=== PATIENT | male | born 1980 | race Caucasian/White ===

== ENCOUNTER 2018-07-22 03:41 | Emergency (ER) | payer BC, SELFPAY ==
[2018-07-22 03:43] VITALS: BP 140/79; PULSE 120; RESP 32; TEMP 37.7; O2SAT 95; BMI 31.2
[2018-07-22 03:45] VITALS: O2SAT 95
--- NOTE | 2018-07-22 03:57 | RAD_ITS ---
STUDY: X-RAY CHEST REASON FOR EXAM: Male, 38 years old. Chest pain. Cough TECHNIQUE: 2 views COMPARISON: None. FINDINGS: Numerous bronchi with opaque arthur are seen centrally. There is no acute pneumonia or failure. The heart is normal in size. No pleural effusions. Normal visualized thoracic spine. Normal visualized ribs, clavicles, and shoulders. There is no demonstrated abnormality of the visualized soft tissue structures of the upper abdomen. RAD/Chest PA and Lateral IMPRESSION: Chronic bronchitis. No acute findings in the lungs Electronically Signed: Jordan Sargent MD at 5:11 EST Tel , Service support ,
--- NOTE | 2018-07-22 03:59 | ED.DCSUM_ITS ---
- ER Visit Summary Date of Service: 07/22/18 Chief Complaint: [] Respiratory illness History of Present Illness: The patient is a 38 M planing of cough and weak for the last 6 days gradual onset continuous current severity is mild. Mild shortness of breath nonproductive cough weakness fatigue. No flu shot. He has myalgias. He has been using [id number]. Was not sure if he had a fever. Physical Examination: Vital signs reviewed General: Well-nourished well-developed Head: Normocephalic atraumatic Eyes: Pupils equal round and reactive to light extraocular movements intact ENT: TMs clear no hemotympanum no trauma Neck: Nontender full range of motion Cardiovascular: Regular cardia with normal rhythm no murmurs normal S1-S2 Respiratory: No distress clear to auscultation bilaterally chest nontender Abdomen: Soft nontender nondistended normal bowel sounds no masses Back: Nontender no CVA tenderness Extremities: Nontender active range of motion ?4 extremities no trauma Skin: Normal color no trauma Neuro alert oriented cranial nerves II through XII intact normal strength sensation reflexes Test Results: [] Emergency Department Course and Treatment: [] Patient given IV fluids, Zofran Toradol and oral Tylenol. Chest x-ray obtained. X-ray shows increased markings right lower lobe consistent with infiltrate. Given levofloxacin. I feel the patient can be discharged will continue symptomatic management for pneumonia. Treatment Plan: [] Disposition: [] Impression: [] Pneumonia?community-acquired This note was generated with [employer] dictation software. It may contain incorrect words, spelling, and punctuation that were not noted in review of the chart prior to signing ED Disposition - Plan for ED Patient: Referrals: Care Physician,No Primary [Primary Care Provider] -
[2018-07-22] MEDS: Ketorolac 15 MG/ML Vial IV (04:19)
[2018-07-22] MEDS: Acetaminophen 500 MG Tablet 1000 MG PO (04:19)
[2018-07-22] MEDS: Ondansetron 4 MG/2 ML Vial IV (04:19)
[2018-07-22] MEDS: 0.9% Normal Saline 1,000 ML 1000 ML IV (04:19)
--- NOTE | 2018-07-22 04:49 | ED.DEP ---
ED Disposition - Plan for ED Patient: Disposition: Home or Assisted Living Instructions: ED Pneumonia Adult Prescriptions: Levofloxacin [Levaquin] 750 mg PO DAILY #7 tab Referrals: Care Physician,No Primary [Primary Care Provider] - Cedric Hamm DO [NON CLINICAL AFFILIATE] -
[2018-07-22] MEDS: levoFLOXacin 750 MG Tablet PO (05:15)
[2018-07-22 05:17] VITALS: BP 166/87; PULSE 104; RESP 18; TEMP 38.8; O2SAT 94
== END 2018-07-22 05:27 | disposition home or self-care (01) ==
PROVIDERS: Emergency Provider Emergency Medicine
DX: J18.9 Pneumonia, unspecified organism (principal); M54.9 Dorsalgia, unspecified
CPT/HCPCS: 71046; 96361; 96374; 96375; 99284; J7030; J2405

== ENCOUNTER 2018-07-23 23:43 | Inpatient (IN) | payer BC, SELFPAY ==
[2018-07-22 03:43] VITALS: BMI 31.2
[2018-07-23 23:43] VITALS: BP 139/78; PULSE 99; RESP 28; TEMP 36.4; O2SAT 95; BMI 30.9
--- NOTE | 2018-07-23 23:52 | EKG12_ITS ---
Test Reason : SOB Blood Pressure : / mmHG Vent. Rate : 098 BPM Atrial Rate : 098 BPM P-R Int : 130 ms QRS Dur : 076 ms QT Int : 346 ms P-R-T Axes : 043 016 027 degrees QTc Int : 441 ms Normal sinus rhythm Normal ECG Confirmed by LAUREN RICHTER, TOR ([id number]), proposal editor VANNESSA JERNIGAN ([id number]) on 07/25/2018 2:15:48 PM Referred By: Seble Anton Confirmed By:TOR AGUILAR MD
--- NOTE | 2018-07-23 23:53 | CT_ITS ---
HISTORY: sob, cough TECHNIQUE: Helically acquired images were obtained of the chest following IV contrast as per pulmonary angiogram protocol with 3D reconstructions. A radiation dose optimization technique was used for this scan. IV Contrast dosage and agent: 100 cc [id number] COMPARISON: Chest radiograph 07/22/18. FINDINGS: # of images incl. paperwork: 602 No central or lobar pulmonary embolus. The segmental and more peripheral pulmonary artery branches are not well evaluated secondary to respiratory motion artifact. No dissection or aneurysm of the thoracic aorta. Normal heart size. No pericardial effusion. No pneumothorax. Small layering simple density right pleural effusion. Interval development of opacities in the right middle lobe and medial aspect right lower lobe with air bronchograms. No acute findings left lung. Mild subcarinal lymphadenopathy. No other enlarged lymph nodes. Partially visible upper abdomen unremarkable. CT/CTA Chest W/WO Contrast IMPRESSION: No definite pulmonary embolus. The segmental and more peripheral pulmonary artery branches are not well evaluated secondary to respiratory motion artifact. Opacities in the right middle lobe and right lower lobe, more than is typically seen with atelectasis and concerning for pneumonia. Small right pleural effusion. These findings are new compared to the previous chest x-ray. Mild subcarinal adenopathy. Individualized dose optimization techniques were used for this CT. at 0134 Reported and signed by: Dragan Lal MD Electronically Signed: Dragan Lal, at 1:33 EST Tel , Service support ,
[2018-07-24] VITALS (22 sets, daily range): BP systolic 124–167; BP diastolic 66–106; PULSE 89–112; RESP 18–38; TEMP 36.6–37.7; O2SAT 93–97; BMI 31.7; BMI 31.8
--- NOTE | 2018-07-24 | ED.VISSUMM ---
- ER Visit Summary Date of Service: 07/24/18 Chief Complaint: Shortness of breath History of Present Illness: The patient is a 38 M presents to the emergency department shortness of breath. Patient was seen here 2 days ago. At that time, he was diagnosed with pneumonia and started on Levaquin. He states that despite taking the antibiotics, symptoms worsened. He had worsening dyspnea, back pain, and feels like he cannot catch his breath. He had fevers, chills, myalgias. He has taken 3 doses of his Levaquin. The patient is otherwise healthy. He has no chronic comorbidities. He denies any history of smoking. He denies any recent travel. He is on no other daily medications. He denies any history of immunosuppression. Physical Examination: Vital signs reviewed General: Well-nourished, well-developed Head: Normocephalic, atraumatic Eyes: Pupils equal and reactive, extraocular muscles intact Neck, supple, no lymphadenopathy Heart: Regular rate and rhythm Respiratory: No distress, clear bilaterally Abdomen: Soft, nontender, nondistended, no peritoneal signs Back: Nontender Extremities: Nontender, no edema, no cords Skin: Normal color no rash Neuro: Alert and oriented, no focal or lateralizing deficits Test Results: [] Emergency Department Course and Treatment: Patient presents with right-sided chest pain and dyspnea. He was tachypneic on arrival. He was splinting because of his pain. I did review his x-ray. He is been compliant with his antibiotics. IV was established. Patient was given analgesics and breathing treatments. He had very little change in his dyspnea. I did want to rule out pulmonary embolus given the patient's symptoms. Screening labs do show leukocytosis and elevated blood sugar. His lactic was also mildly elevated. Patient underwent CTA of the chest. There is no definitive pulmonary embolus. He does have multilobar pneumonia on the right. Given his pain and worsening symptoms I do feel that he is going require admission. Patient was discussed with the hospitalist. We will continue with Levaquin treatment. The patient will be admitted. Treatment Plan: [] Disposition: Admission Impression: 1. Multilobar pneumonia 2. Sepsis This note was generated with [employer] software. It may contain incorrect words, spelling, and punctuation that were not noted in review of the chart prior to signing ED Disposition - Plan for ED Patient: Referrals: Care Physician,Lidia Primary [Primary Care Provider] -
--- NOTE | 2018-07-24 00:01 | ED.RN ---
SPOKE WITH DR TRAORE ABOUT SEPSIS ALERT. PT ALREADY TAKING ANTIBIOTIC SO BLOOD CULTURES ARE NOT ORDERED
[2018-07-24] MEDS: Albuterol 2.5 MG/3 ML VIAL.NEB. INHALATION ×3 (00:10→19:20)
[2018-07-24] MEDS: Ipratropium/Albuterol Sulfate 3 ML AMPUL.NEB INHALATION (00:10)
[2018-07-24] MEDS: 0.9% Normal Saline 1,000 ML 1000 ML IV (00:38)
[2018-07-24] MEDS: Morphine 4 MG/ML Syringe IV ×4 (00:38→18:16)
[2018-07-24 00:40] LABS: Absolute Lymphocyte Count 0.75 X10^3/ul (0.83-4.51); Absolute Neutrophil Count 13.2 X10^3/uL (2.0-7.7); Basophil# 0.01 X10^3/uL; Basophil% 0.1 % (0-1); Hematocrit 39.5 % (40-54); Hemoglobin 13.2 g/dl (13.0-16.5); Lymphocyte # 0.75 X10^3/ul (4.0); Mean Corp Hgb Conc 33.4 g/gl (32-36); Mean Corpuscular Volume 86.8 fL (80-94); Mean Platelet Vol. 10.9 fl (6.2-12.0); Monocyte# 1.05 X10^3/uL; Monocyte% 6.9 % (0-10); Neutrophil # 13.24 X10^3/uL (2.7-7.7); Neutrophil % 87.6 % (47-70); Platelet Count 156 K/mm3 (150-450); RBC Distribution Width CV 12.3 % (11.6-14.6); Red Blood Count 4.55 M/mm3 (4.6-6.2); White Blood Count 15.1 K/mm3 (4.4-11.0)
[2018-07-24 00:43] LABS: POSITIVE COUNT NO; POSITIVE DIFFERENTIAL NO; POSITIVE MORPHOLOGY NO
[2018-07-24 00:51] LABS: ALB/GLOB Ratio 0.7 RATIO (0.9-2.4); AST(SGOT) 11 U/L (15-37); Alanine Aminotransfer ALT/SGPT 22 U/L (16-61); Alkaline Phosphatase 76 U/L (45-117); Anion Gap 12 (5-15); BUN 12 mg/dL (7-18); BUN/Creat Ratio 13.4 RATIO (10-20); Calcium,Total 8.2 mg/dL (8.5-10.1); Chloride 95 mmol/L (98-107); Creatinine, Serum 0.89 mg/dL (0.70-1.30); EST Glomerular Filtration Rate 101 mL/min (>60); Est Glom Filt Rate - Afr Amer 122 mL/min (>60); Globulin 4.4 g/dL (2.2-4.2); Glucose 303 mg/dL (74-106); Potassium 3.7 mmol/L (3.5-5.1); Protein, Total 7.4 g/dL (6.4-8.2); Sodium Level 133 mmol/L (136-145)
[2018-07-24] MEDS: Ketorolac 15 MG/ML Vial IV ×2 (01:23→05:12)
[2018-07-24 01:52] LABS: Lactic Acid 2.7 mmol/L (0.4-2.0)
--- NOTE | 2018-07-24 01:53 | ED.RN ---
RECEIVED CALL FROM LAB FOR CRITICAL LAB VALUE. LACTIC ACID 2.7. DR. OCAMPO NOTIFIED.
--- NOTE | 2018-07-24 02:20 | HP.PCM_ITS ---
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 The patient is a 38 year old M with no significant past medical history presented to the emergency room because of shortness of breath, cough and right mid back pain. His symptoms started around 6 days ago with shortness of breath, mainly exertional and sometimes even at rest, aggravated by any type of act ivity, not relieved with rest and associated with productive cough with small amount of light yellow sputum as well as subjective fever. Also complains of right mid back pain, sharp pain, 5-6 out of 10 severity, aggravated by taking a deep breath and no associated symptoms. He came to the emergency department on the morning of July 22, 2018, had chest x-ray that showed no acute findings and he was discharged on Levaquin. He took Levaquin for 2 days without any improvement. In the emergency department, patient was afebrile, tachycardic, blood pressure was slightly elevated, dyspneic and tachypneic, pulse ox was 94% on room air. Routine blood work was remarkable for leukocytosis, blood glucose of 303. Blood glucose of 303. Lactic acid was 2.7. EKG revealed sinus rhythm without evidence of acute ischemic changes. Troponin is negative. CTA chest revealed no PE or dissection, revealed opacities in the right middle and lower lobe as well as small right pleural effusion. He is being admitted for right lung community-acquired pneumonia with severe sepsis and hyperglycemia. Past Medical History Past Medical History (Chronic Problems): Chronic Problems Tear of medial meniscus of left knee (Chronic) Synovial plica of left knee (Chronic) Allergies No Known Allergies Allergy (Verified 07/23/18 23:46) Home Medications: Ambulatory Orders Medication Instructions Recorded Levofloxacin [Levaquin] 750 mg PO DAILY #7 tab 07/22/18 Surgical History: - - Left knee surgery for meniscal tear. Psychiatric History: No pertinent psych hx Lives: Spouse/ Significant Other Smoking Status: Former smoker Alcohol: None Drugs: None - *Family History Maternal History Items: No pertinent history Paternal History Items: No pertinent history, - - No family history of diabetes or hypertension. Review of Systems Constitutional: Reports: Anorexia, Fever. Denies: Chills, Weakness, Fatigue Eyes: Denies: Blurred vision, Double vision, Drainage, Redness HEENT: Denies: Difficulty Hearing, Ear Pain, Eye Pain, Nasal Congestion, Sore Throat Cardiovascular: Denies: Chest Pain, Chest Pressure, Chest Tightness, Light Headedness, Palpitations, Syncope Respiratory: Reports: Cough, Pleuritic Pain, Shortness of Breath, Shortness of breath upon exertion, Sputum production. Denies: Wheezing Gastrointestinal: Denies: Abdominal Pain, Constipation, Diarrhea, Nausea, Vomiting Genitourinary: Denies: Dysuria, Frequency, Hematuria Musculoskeletal: Denies: Arm Pain, Back Pain, Foot Pain Skin: Denies: Dryness, Rash Neurological: Denies: Balance problems, Double vision, Change in Speech, Slurred speech, Confusion, Incoordination, Numbness Psychiatric: Denies: Anxiety, Depression Endocrine: Denies: Change in Body Habitus, Polydipsia VTE Information - Inpt Only VTE Present on Admission: No VTE Mechan Device Prophylaxis: None VTE Pharm Prophylaxis ordered?: No Patient Problems: Active and Suspected Problems Severe sepsis (Acute) Community acquired pneumonia (Acute) - Physical Exam General: Alert, Oriented x3, Cooperative, - - Minimally short of breath. HEENT: Atraumatic, PERRLA, EOMI, Normocephalic Oral: Moist Mucosa, No Gingival or Mucosal Lesions/ Ulcerations Neck: Supple, No JVD, Negative Carotid Bruits, Trachea Midline, Thyroid Normal Size and Texture Lungs: No wheeze, Diminished, Rales, Short of Breath, - - Limited respiratory effort because of right mid back pleuritic pain. Decreased breath sounds bilaterally, more on the right side, faint crackles on the right lower zone. Cardiovascular: Regular rate, Regular Rhythm, Normal S1, Normal S2, PMI Normal, Tachycardic Abdomen: Bowel Sounds Present, Soft, Non Tender, Non-Distended, No Hepato- splenomegaly Extremities: No clubbing, No cyanosis, No edema Skin: No rashes, No breakdown Lymphatic: No Cervical, Supraclavicular, or Inguinal Adenopathy Neurological: Cranial nerves II-XII grossly intact, Motor Exam 5/5 strength throughout Psych/Mental Status: Normal Affect, Appropriate, Alert and oriented to time, place, person, mood and affect Vital Signs Temp Pulse Resp BP Pulse Ox 99.8 F H 110 H 22 H 124/86 H 93 07/24/18 02:10 07/24/18 02:10 07/24/18 02:10 07/24/18 02:10 07/24/18 02:10 Oxygen Delivery Method Room Air Weight: 248 lb Body Mass Index (BMI) 30.9 Laboratory Tests Past 24 Hrs 07/23/18 07/23/18 07/23/18 00:05 23:59 23:59 WBC 15.1 H RBC 4.55 L Hgb 13.2 Hct 39.5 L MCV 86.8 MCH 29.0 MCHC 33.4 RDW 12.3 RDW Differential 39.0 Plt Count 156 MPV 10.9 Immature Gran % (Auto) 0.400 Neut % (Auto) 87.6 H Lymph % (Auto) 5.0 L Dickey % (Auto) 6.9 Eos % (Auto) 0.0 Baso % (Auto) 0.1 Absolute Neuts (auto) 13.2 H Absolute Lymphs (auto) 0.75 L Total Counted Not Reportable Sodium 133 L Potassium 3.7 Chloride 95 L Carbon Dioxide 26.0 Anion Gap 12 BUN 12 Creatinine 0.89 Estim Creat Clear Calc 134.50 Est GFR (MDRD) Af Amer 122 Est GFR (MDRD) Non-Af 101 BUN/Creatinine Ratio 13.4 Glucose 303 H Lactic Acid Calcium 8.2 L Total Bilirubin 0.90 AST 11 L ALT 22 Alkaline Phosphatase 76 Troponin I < 0.015 Total Protein 7.4 Albumin 3.0 L Globulin 4.4 H Albumin/Globulin Ratio 0.7 L 07/24/18 00:32 WBC RBC Hgb Hct MCV MCH MCHC RDW RDW Differential Plt Count MPV Immature Gran % (Auto) Neut % (Auto) Lymph % (Auto) Dickey % (Auto) Eos % (Auto) Baso % (Auto) Absolute Neuts (auto) Absolute Lymphs (auto) Total Counted Sodium Potassium Chloride Carbon Dioxide Anion Gap BUN Creatinine Estim Creat Clear Calc Est GFR (MDRD) Af Amer Est GFR (MDRD) Non-Af BUN/Creatinine Ratio Glucose Lactic Acid 2.7 H Calcium Total Bilirubin AST ALT Alkaline Phosphatase Troponin I Total Protein Albumin Globulin Albumin/Globulin Ratio Clinical Impression(s) from Imaging Studies Chest CTA 07/23/18 23:53 IMPRESSION: No definite pulmonary embolus. The segmental and more peripheral pulmonary artery branches are not well evaluated secondary to respiratory motion artifact. Opacities in the right middle lobe and right lower lobe, more than is typically seen with atelectasis and concerning for pneumonia. Small right pleural effusion. These findings are new compared to the previous chest x-ray. Mild subcarinal adenopathy. Individualized dose optimization techniques were used for this CT. at 0134 Reported and signed by: Dragan Lal MD Electronically Signed: Dragan Lal, at 1:33 EST Tel , Service support , Assessment/Plan All Active Problems Severe sepsis (Acute) Community acquired pneumonia (Acute) This is a 58 years old male patient presented to the medicine because of 6 days history of shortness of breath, productive cough, subjective fever and right mid back pleuritic pain and he was found to have right middle and lower lobe opacities, leukocytosis, elevated lactic acid, tachycardia consistent with right lung community-acquired pneumonia with severe sepsis and also found to have hyperglycemia without history of diabetes. #1 right lung committee acquired pneumonia/severe sepsis: Patient is tachypneic, dyspneic, tachycardic, elevated lactic acid. CTA chest reviewed, no PE or dissection, revealed right middle and lower lobe opacities as well as small right pleural effusion which is probably department effusion. He is afebrile, blood pressure stable, tachycardic. Pulse ox is maintained on room air. [facility] telemetry monitoring, blood culture, sputum culture, urine analysis, IV fluids, repeat lactic acid in 3 hours, start IV Levaquin, IV morphine as needed for pain, IV Toradol, Tylenol as needed, Mucinex twice daily, pneumococcal and Legionella antigen, respiratory panel for viruses, albuterol every 6 hours, chest physiotherapy, incentive spirometer, repeat CBC and BMP tomorrow morning. #2 hyperglycemia: Without history of diabetes. Blood sugar was 303. Plan: Hemoglobin A1c, Accu-Cheks every 6 hours, insulin sliding scale. #3 DVT prophylaxis: Low-risk patient, no prophylaxis indicated. This note was generated with Dragon dictation software. It may contain incorrect words, spelling, and punctuation that were not noted in checking the note before signing. Code Visit Inpatient E&M: 72924 Init Hosp L3
[2018-07-24 04:37] LABS: Reflex Lactate? Y
[2018-07-24] MEDS: 0.9% Normal Saline 1,000 ML 100 ML IV ×2 (04:39→16:11)
[2018-07-24] MEDS: Morphine 2 MG/ML Syringe IV ×3 (05:38→22:35)
[2018-07-24] MEDS: levoFLOXacin IV 750 MG/150 ML BAG 100 MG IV (05:39)
[2018-07-24 05:53] LABS: Lactic Acid 1.5 mmol/L (0.4-2.0)
[2018-07-24 06:11] LABS: Anion Gap 9 (5-15); BUN 12 mg/dL (7-18); BUN/Creat Ratio 12.3 RATIO (10-20); Calcium,Total 8.2 mg/dL (8.5-10.1); Chloride 97 mmol/L (98-107); Creatinine, Serum 0.97 mg/dL (0.70-1.30); EST Glomerular Filtration Rate 92 mL/min (>60); Est Glom Filt Rate - Afr Amer 111 mL/min (>60); Estimated Creatinine Clearance 123.41 ml/min; Glucose 250 mg/dL (74-106); Potassium 3.9 mmol/L (3.5-5.1); Sodium Level 134 mmol/L (136-145)
[2018-07-24 06:14] LABS: Color, Urine Yellow (Yellow); Glucose, Dipstick 1000 mg/dl (Normal); Leukocyte Esterase-Dipstick 25 /ul (Negative); Nitrite-Dipstick Negative (Negative); Occult Blood-Urine 150 /ul (Negative); Protein-Dipstick 100 mg/dl (Negative); Urine Bilirubin Dipstick Negative (Negative); Urine Clarity Sl. Cloudy (Clear); Urine Urobilinogen 1 mg/dl (Normal); Urine pH 6.5 (5.0 - 8.0)
[2018-07-24 06:23] LABS: Ketone-Dipstick 150 mg/dl (Negative)
[2018-07-24 06:34] LABS: Absolute Lymphocyte Count 0.73 X10^3/ul (0.83-4.51); Absolute Neutrophil Count 11.9 X10^3/uL (2.0-7.7); Basophil# 0.01 X10^3/uL; Basophil% 0.1 % (0-1); Hematocrit 37.7 % (40-54); Hemoglobin 12.5 g/dl (13.0-16.5); Lymphocyte # 0.73 X10^3/ul (4.0); Lymphocyte % 5.4 % (19-41); Mean Corp Hgb Conc 33.2 g/gl (32-36); Mean Corpuscular Hgb 28.9 pg (27.0-32.0); Mean Corpuscular Volume 87.3 fL (80-94); Mean Platelet Vol. 11.2 fl (6.2-12.0); Monocyte# 0.81 X10^3/uL; Neutrophil # 11.91 X10^3/uL (2.7-7.7); Neutrophil % 88.2 % (47-70); Platelet Count 181 K/mm3 (150-450); RBC Distribution Width CV 12.3 % (11.6-14.6); RBC Distribution Width SD 39.5 fl (35.1-43.9); Red Blood Count 4.32 M/mm3 (4.6-6.2); White Blood Count 13.5 K/mm3 (4.4-11.0)
[2018-07-24 06:36] LABS: POSITIVE COUNT NO; POSITIVE DIFFERENTIAL NO; POSITIVE MORPHOLOGY NO
[2018-07-24] MEDS: Insulin Lispro 100 UNIT/ML INSULN.PEN SC ×3 (06:46→18:19)
[2018-07-24 06:55] LABS: Bedside Glucose 305 mg/dL (70-110)
[2018-07-24 07:00] LABS: Hemoglobin A1c 8.6 % (4.2-6.3)
[2018-07-24] MEDS: guaiFENesin 1,200 MG Tablet 1200 MG PO ×2 (09:38→22:31)
[2018-07-24] MEDS: Glucerna Shake 120 ML LIQUID PO (10:04)
[2018-07-24] MEDS: Ibuprofen 600 MG Tablet PO ×2 (10:22→16:14)
[2018-07-24 12:26] LABS: Bedside Glucose 304 mg/dL (70-110)
[2018-07-24] MEDS: Acetaminophen 325 MG Tablet 650 MG PO (12:45)
--- NOTE | 2018-07-24 15:50 | PCM.HOSP.N ---
Hospitalist Note Patient was seen and examined briefly today, he is complaining of pleuritic chest pain, I placed him on ibuprofen and increased his as needed IV morphine. Patient's white blood cell count which was drawn this morning is improved over admission labs. So far patient's respiratory panel is negative and his urine antigens have been negative. We will continue present antibiotic coverage, repeat labs and chest x-ray tomorrow
--- NOTE | 2018-07-24 16:15 | NURSING ---
Aware that resp panel came back negative and will take out of droplet prec.
[2018-07-24] MEDS: 0.9% NaCl Peripheral Flush Adult/Peds IV (18:16)
[2018-07-24 18:25] LABS: Bedside Glucose 275 mg/dL (70-110)
[2018-07-25] VITALS (16 sets, daily range): BP systolic 121–145; BP diastolic 74–87; PULSE 84–110; RESP 18–28; TEMP 36.8–37.9; O2SAT 92–98
[2018-07-25] MEDS: Insulin Lispro 100 UNIT/ML INSULN.PEN SC ×5 (00:31→23:36)
[2018-07-25] MEDS: Ibuprofen 600 MG Tablet PO ×3 (00:38→17:30)
[2018-07-25 00:46] LABS: Bedside Glucose 241 mg/dL (70-110)
[2018-07-25] MEDS: 0.9% Normal Saline 1,000 ML 100 ML IV ×3 (01:51→21:05)
[2018-07-25] MEDS: Morphine 2 MG/ML Syringe IV ×2 (02:37→06:51)
--- NOTE | 2018-07-25 05:45 | RAD_ITS ---
STUDY: X-RAY CHEST REASON FOR EXAM: Male, 38 years old. Shortness of breath TECHNIQUE: PA and lateral views of the chest. COMPARISON: July 22, 2018 FINDINGS: The lungs are mildly hypoinflated. Elevated right hemidiaphragm is noted with right lower lobe airspace disease and probable effusion. Left lower lobe airspace disease as well. There is borderline cardiomegaly. Normal mediastinum and jose. Normal visualized pulmonary arteries. There is atherosclerotic tortuosity of the aortic arch and descending thoracic aorta. There are diffuse degenerative changes of the visualized thoracic spine. Normal visualized ribs, clavicles, and shoulders. There is no demonstrated abnormality of the visualized soft tissue structures of the upper abdomen. RAD/Chest PA and Lateral IMPRESSION: Bibasilar airspace disease; right greater than left with probable effusion and consolidation. Electronically Signed: Andi Chris DO at 8:22 EST Tel , Service support ,
[2018-07-25 06:39] LABS: Absolute Lymphocyte Count 1.17 X10^3/ul (0.83-4.51); Absolute Neutrophil Count 9.4 X10^3/uL (2.0-7.7); Basophil# 0.03 X10^3/uL; Basophil% 0.3 % (0-1); Hematocrit 38.1 % (40-54); Hemoglobin 12.3 g/dl (13.0-16.5); Lymphocyte # 1.17 X10^3/ul (4.0); Lymphocyte % 10.1 % (19-41); Mean Corp Hgb Conc 32.3 g/gl (32-36); Mean Corpuscular Hgb 28.6 pg (27.0-32.0); Mean Corpuscular Volume 88.6 fL (80-94); Mean Platelet Vol. 10.8 fl (6.2-12.0); Monocyte# 0.92 X10^3/uL; Monocyte% 7.9 % (0-10); Neutrophil # 9.38 X10^3/uL (2.7-7.7); Neutrophil % 80.7 % (47-70); Platelet Count 247 K/mm3 (150-450); RBC Distribution Width CV 12.6 % (11.6-14.6); RBC Distribution Width SD 40.3 fl (35.1-43.9); White Blood Count 11.6 K/mm3 (4.4-11.0)
[2018-07-25 06:40] LABS: POSITIVE COUNT NO; POSITIVE DIFFERENTIAL NO; POSITIVE MORPHOLOGY NO
[2018-07-25 07:01] LABS: Bedside Glucose 208 mg/dL (70-110)
[2018-07-25] MEDS: Albuterol 2.5 MG/3 ML VIAL.NEB. INHALATION ×3 (07:17→18:54)
[2018-07-25] MEDS: guaiFENesin 1,200 MG Tablet 1200 MG PO ×2 (08:22→21:17)
[2018-07-25] MEDS: Morphine 4 MG/ML Syringe IV ×2 (11:34→21:04)
[2018-07-25] MEDS: levoFLOXacin 750 MG Tablet PO (11:36)
[2018-07-25] MEDS: 0.9% NaCl Peripheral Flush Adult/Peds IV ×2 (11:36→11:56)
[2018-07-25 11:50] LABS: Bedside Glucose 213 mg/dL (70-110)
[2018-07-25] MEDS: Acetaminophen 325 MG Tablet 650 MG PO ×2 (11:56→21:13)
[2018-07-25] MEDS: Ondansetron 4 MG/2 ML Vial IV (11:56)
[2018-07-25] MEDS: guaiFENesin/Codeine 5 ML UDC 10 ML PO ×2 (13:16→17:30)
--- NOTE | 2018-07-25 13:16 | CASEMGMT ---
RN JULIAN Assessment Presentation: Pneumonia, severe sepsis. Intro role of CM and purpose of RN CM assessment to patient in room. Demographics verified. PCP: none. Pt states he goes to walk in clinic @ [facility] if needed. JOSH JORDAN gave list for PCP's in [place] and explained process, benefits for establishing with a PCP. Recommended he follow up with walk in clinic where they have his file on dc to be sure his recovery is progressing. Preferred Pharmacy: [facility] Insurance:[place] Prescription Benefit: yes LNOK: Father, Farncis Tobias Living Arrangements: Lives independently in apartment. No needs identified. Transportation: drives DME: none HHC: none DC PLAN: Home on dc.
--- NOTE | 2018-07-25 15:01 | NURSING ---
spoke with ultrasound regarding new order- states she is checking with radiologist as to when procedure may be started. direct number given to floor nurse to call when plan established.
[2018-07-25 15:24] LABS: International Normalized Ratio 1.1; Prothrombin Time (Protime)PT. 13.8 SECONDS (11.7-14.9)
[2018-07-25 15:25] LABS: Partial Thromboplast Time 31.9 Seconds (24.1-36.2)
[2018-07-25 15:26] LABS: ALB/GLOB Ratio 0.5 RATIO (0.9-2.4); Globulin 4.1 g/dL (2.2-4.2); LDH 136 U/L (87-241); Protein, Total 6.3 g/dL (6.4-8.2)
--- NOTE | 2018-07-25 15:59 | PCM.PROGNOTE ---
Patient Problems: Active and Suspected Problems Severe sepsis (Acute) Community acquired pneumonia (Acute) Subjective: He was seen and examined today, he continues to have pleuritic pain, chest x-ray today shows an accumulation of fluid (? Atelectasis,? Infiltrate) over the patient's right lower lung field. Patient's white blood cell count today is improved. Briefly with pulmonary medicine today by phone, they will see the patient tomorrow, they recommended an ultrasound-guided drainage of fluid around the right lower lobe-ultrasound will be ordered and if there is enough fluid, sample will be obtained. Patient's sputum culture was positive for staph. I have elected to keep the patient on Levaquin at this time. - Physical Exam General: Alert, Oriented x3, Cooperative, No apparent distress, Well developed, Well nourished HEENT: Atraumatic, PERRLA, EOMI, Normocephalic Oral: Moist Mucosa Neck: Supple, No Nuchal Rigidity, Trachea Midline, Thyroid Normal Size and Texture Lungs: Normal air movement, No rhonchi, Diminished - Diminished breath signs over the right lower lobe, Wheezes - Scattered expiratory wheezes bilaterally Cardiovascular: Regular rate, Regular Rhythm, Normal S1, Normal S2, No murmurs, No Ectopic Activity, PMI Normal, No rub noted Abdomen: Bowel Sounds Present, Soft, Non Tender, Non-Distended Extremities: No edema, Capillary Refill Less than 3 Seconds Skin: No rashes, No breakdown Musculoskeletal: No Tenderness to Palpation of Joints or Extremities Neurological: Cranial nerves II-XII grossly intact, Neuro grossly intact, Sensory exam intact to light touch and pain, Coordination normal Psych/Mental Status: Normal Affect, Appropriate, Alert and oriented to time, place, person, mood and affect Vital Signs Temp Pulse Resp BP Pulse Ox 99.5 F H 110 H 24 H 128/80 H 94 07/25/18 14:17 07/25/18 14:17 07/25/18 14:17 07/25/18 14:17 07/25/18 14:17 Oxygen Flow Rate (L/min) 2 Oxygen Delivery Method Nasal Cannula Weight: 115.3 kg Body Mass Index (BMI) 31.7 Intake and Output for Last 24 Hours 07/23/18 07/24/18 07/25/18 23:59 23:59 23:59 Intake Total 2285 / 2285 3075 / 3075 Output Total 300 / 300 Balance 1984 3075 / 3075 Microbiology Past 72 Hours 07/24/18 03:15 Gram Stain - Final Sputum, Expectorated/Coughed Respiratory Culture - Preliminary Staphylococcus aureus 07/24/18 05:15 Respiratory Panel (PCR) - Final Mucosa - Nose 07/24/18 05:45 Legionella Antigen - Final Urine, Clean Catch 07/24/18 05:45 Streptococcus pneumoniae Antigen (M - Final Urine, Clean Catch Laboratory Tests Past 24 Hrs 07/25/18 07/25/18 07/25/18 06:10 15:00 15:00 WBC 11.6 H RBC 4.30 L Hgb 12.3 L Hct 38.1 L MCV 88.6 MCH 28.6 MCHC 32.3 RDW 12.6 RDW Differential 40.3 Plt Count 247 MPV 10.8 Immature Gran % (Auto) 1.000 H Neut % (Auto) 80.7 H Lymph % (Auto) 10.1 L Morris % (Auto) 7.9 Eos % (Auto) 0.0 Baso % (Auto) 0.3 Absolute Neuts (auto) 9.4 H Absolute Lymphs (auto) 1.17 Total Counted Not Reportable PT 13.8 INR 1.1 APTT 31.9 Lactate Dehydrogenase 136 Total Protein 6.3 L Globulin 4.1 Albumin/Globulin Ratio 0.5 L POC Glucose 07/25/18 07/25/18 07/25/18 11:39 06:50 00:29 POC Glucose 213 H 208 H 241 H 07/24/18 18:14 POC Glucose 275 H Medical Necessity - Tobacco Use Smoking Status: Former smoker Assessment/Plan All Active Problems Severe sepsis (Acute) Community acquired pneumonia (Acute) #1 severe sepsis secondary to community-acquired pneumonia right lower lobe-? Staph aureus, await final culture results #2 community-acquired right lower lobe pneumonia-Staphylococcus aureus, continue Levaquin, pulmonary consultation #3 right pleural effusion-either parapneumonic or empyema, this will be tapped under ultrasound tomorrow if radiology is able #4 pleurisy-continue IV narcotics for pain, patient is on Motrin also #5 hypoxia-secondary to #2, continue to monitor oxygen sat #6 type 2 diabetes-new diagnosis, continue to monitor blood sugars and administer sliding scale insulin, patient will need to be placed on oral medications, I will review his medications. Code Visit Inpatient E&M: 31125 Subs Hosp L2
[2018-07-25 16:55] LABS: Bedside Glucose 236 mg/dL (70-110)
--- NOTE | 2018-07-25 17:38 | NURSING ---
cps in to see pt as well. pt looks less sob, able to speak in full sentence with less coughing.
[2018-07-26] VITALS (22 sets, daily range): BP systolic 126–149; BP diastolic 68–82; PULSE 87–125; RESP 16–32; TEMP 37.1–39.3; O2SAT 87–97
--- NOTE | 2018-07-26 | FLU_PTH ---
PATIENT: ROMAN TOPETE LOC: [facility] U#:[id number] AGE/SX: 38/M ROOM: [facility] RE07/24/[address]: Dr. Jakob Plasencia DO : 1980 BED: 1 DIS: 07/26/2018 SPEC #: [id number] RECD: 07/26/18 12:51 STATUS: SIGIFREDO REChance #: [id number] [place]: 07/26/18 00:[address]: Jakob Plasencia DEPT: CYTOLOGY RECD BY: Keith Warner ENTERED: 07/26/18 12:52 SP TYPE: Fluid OTHR DR: DO Dr. Seble Gautam MD No Primary Care Phys Tissues: THORACIC FLUID Procedures: Special Stain Group II Surgery Specimen Level IV Cytospin Fluid HEADER OPERATION: Thoracentesis PRE-OP DIAGNOSIS: Right lung CAP, severe sepsis TISSUE SUBMITTED: Thoracentesis fluid for cytology DIAGNOSIS CYTOLOGY Thoracentesis fluid for cytology (cytospin and cell block): Negative for malignant cells. Acute inflammation. AM:moe 07/27/18 CYTOLOGY STUDY Slides are reviewed. CYTOLOGY GROSS Received is <1 ml of red cloudy fluid labeled with the patient's name and and designated per the requisition as thoracentesis. Submitted for cytology preparation including cell block. / 07/26/18 TC:2 CPT: 63604, 46341
[2018-07-26] MEDS: Albuterol 2.5 MG/3 ML VIAL.NEB. INHALATION ×3 (01:28→13:12)
[2018-07-26 01:36] LABS: Bedside Glucose 283 mg/dL (70-110)
[2018-07-26] MEDS: 0.9% NaCl Peripheral Flush Adult/Peds IV ×4 (01:39→17:58)
[2018-07-26] MEDS: Morphine 4 MG/ML Syringe IV (01:39)
[2018-07-26] MEDS: guaiFENesin/Codeine 5 ML UDC 10 ML PO ×3 (01:39→16:18)
--- NOTE | 2018-07-26 04:30 | NUR.TO.PHY ---
Patient's oxygen sats alarming on continuos pulse ox in 80s. Venti was changed to 6L @ 31%. I also encouraged the patient to cough and deep breath. The oxygen sats after 5 minutes had increased to 91%. I called CPS for opinion and they recommended changing the venti to 8L @ 40%. The oxygen sats increased to 95% and heart rate also decreased.
[2018-07-26] MEDS: Ibuprofen 600 MG Tablet PO ×2 (04:58→11:44)
[2018-07-26] MEDS: Acetaminophen 325 MG Tablet 650 MG PO ×3 (04:59→16:17)
[2018-07-26] MEDS: levoFLOXacin 750 MG Tablet PO (04:59)
[2018-07-26] MEDS: Insulin Lispro 100 UNIT/ML INSULN.PEN SC ×3 (05:10→18:00)
[2018-07-26 05:16] LABS: Bedside Glucose 199 mg/dL (70-110)
--- NOTE | 2018-07-26 06:35 | NURSING ---
Transferred to PCU room 106 at this time. Verbal report to primary RN.
--- NOTE | 2018-07-26 06:44 | PCM.CONS.GEN ---
Reason for Consult Date of Consultation: 07/26/18 Reason for Consultation: Acute respiratory failure History of Present Illness: The patient is a 38-year-old male, with a history as outlined below, who presented to the emergency department on July 23 with complaints of 1 week of progressive shortness of breath, generalized malaise and fatigue. The patient had been evaluated in the emergency department the day prior with similar complaints. Plain film chest x-ray obtained at that time revealed evidence of right lower lobe infiltrate, for which the patient was prescribed Levaquin. He was subsequently felt to be stable for discharge home. The patient is a lifelong non-smoker. On presentation to the emergency department, the patient was initially found to be afebrile and hemodynamically stable. Initial laboratory evaluation revealed an elevated white blood cell count to 15,000. Chemistry profile was unrevealing. Serum lactate was mildly elevated at 2.7. A CTA chest was obtained, which revealed no evidence for pulmonary embolism. There was, however, evidence of infiltrates in the right middle and right lower lobes. The patient received supplemental IV fluid hydration and was started on antibiotics. He was subsequently transferred to the medical surgical floor for ongoing management. Over the ensuing 24 hours, the patient slowly decompensated from a respiratory perspective. He went from requiring minimal supplemental oxygen by nasal cannula to needing a 40% Ventimask, as of this morning, when I was contacted by nursing staff on the medical surgical floor, requesting emergent evaluation of the patient. The patient's plain film chest x-ray from yesterday revealed significant opacification of the right lower and mid lung molina, concerning for underlying consolidation and possible associated pleural effusion. I did place an order for repeat labs. In order for an MRSA screen was also obtained. The patient's antibiotics were subsequently broadened to vancomycin and Zosyn. I did place an order for the patient to be transferred to the PCU. Past Medical History Past Medical History (Chronic Problems): Chronic Problems Tear of medial meniscus of left knee (Chronic) Synovial plica of left knee (Chronic) Allergies No Known Allergies Allergy (Verified 07/23/18 23:46) Home Medications: Ambulatory Orders Medication Instructions Recorded Levofloxacin [Levaquin] 750 mg PO DAILY #7 tab 07/22/18 Surgical History: - - Left knee surgery for meniscal tear. Psychiatric History: No pertinent psych hx Lives: Spouse/ Significant Other Smoking Status: Former smoker Alcohol: None Drugs: None - *Family History Maternal History Items: No pertinent history Paternal History Items: No pertinent history, - - No family history of diabetes or hypertension. Review of Systems Constitutional: Reports: Fever, Malaise, Weakness, Fatigue Eyes: Denies: Blurred vision, Double vision HEENT: Denies: Head Aches, Sinus Congestion, Sinus Drainage Cardiovascular: Denies: Chest Pain, Palpitations Respiratory: Reports: Cough, Shortness of Breath, Sputum production Gastrointestinal: Denies: Abdominal Pain, Nausea, Vomiting Genitourinary: Denies: Dysuria Musculoskeletal: Denies: Joint Pain, Joint Tenderness Skin: Denies: Rash, Wounds Neurological: Denies: Numbness, Tingling, Focal weakness Psychiatric: Denies: Anxiety, Depression, Homicidal Ideations, Suicidal Ideations Hematologic/ Lymphatic: Denies: Easy Bruising, Easy Bleeding Patient Problems: Active and Suspected Problems Severe sepsis (Acute) Community acquired pneumonia (Acute) Objective: The patient's most recent lab work, culture data and imaging studies have all been personally reviewed. Blood cultures have been unrevealing to date. Sputum culture was positive for staph aureus. Respiratory viral panel was negative. Strep and urine Legionella antigens were both negative. - Physical Exam General: Alert, Cooperative, - - Diaphoretic. Ventimask in place. HEENT: Atraumatic, PERRLA, Normocephalic Oral: No Gingival or Mucosal Lesions/ Ulcerations Neck: Supple, No Nodes, Trachea Midline Lungs: Diminished, Rhonchi, Short of Breath Cardiovascular: Regular rate, Regular Rhythm, Normal S1, Normal S2, No murmurs Abdomen: Bowel Sounds Present, Soft, Non Tender Extremities: No clubbing, No cyanosis, No edema Skin: No breakdown Musculoskeletal: No Tenderness to Palpation of Joints or Extremities, No Muscle Wasting Neurological: Cranial nerves II-XII grossly intact, Neuro grossly intact Psych/Mental Status: Normal Affect, Appropriate Vital Signs Temp Pulse Resp BP Pulse Ox 37.9 C H 105 H 28 H 126/77 H 94 07/26/18 06:09 07/26/18 06:09 07/26/18 06:09 07/26/18 06:09 07/26/18 06:09 Oxygen Flow Rate (L/min) 8 Oxygen Delivery Method Venturi Mask Weight: 254 lb 3.088 oz Body Mass Index (BMI) 31.7 Intake and Output for Last 24 Hours 07/24/18 07/25/18 07/26/18 23:59 23:59 23:59 Intake Total 2285 / 2285 3375 / 3375 861 / 861 Output Total 300 / 300 1325 / 1325 1125 / 1125 Balance 1984 / 1984 -264 / -264 Microbiology Past 72 Hours 07/24/18 03:15 Gram Stain - Final Sputum, Expectorated/Coughed Respiratory Culture - Preliminary Staphylococcus aureus 07/24/18 05:15 Respiratory Panel (PCR) - Final Mucosa - Nose 07/24/18 05:45 Legionella Antigen - Final Urine, Clean Catch 07/24/18 05:45 Streptococcus pneumoniae Antigen (M - Final Urine, Clean Catch Laboratory Tests Past 24 Hrs 07/25/18 07/25/18 15:00 15:00 PT 13.8 INR 1.1 APTT 31.9 Lactate Dehydrogenase 136 Total Protein 6.3 L Globulin 4.1 Albumin/Globulin Ratio 0.5 L POC Glucose 07/26/18 07/25/18 07/25/18 05:10 23:34 16:40 POC Glucose 199 H 283 H 236 H 07/25/18 07/25/18 11:39 06:50 POC Glucose 213 H 208 H Clinical Impression(s) from Imaging Studies Chest CTA 07/23/18 23:53 IMPRESSION: No definite pulmonary embolus. The segmental and more peripheral pulmonary artery branches are not well evaluated secondary to respiratory motion artifact. Opacities in the right middle lobe and right lower lobe, more than is typically seen with atelectasis and concerning for pneumonia. Small right pleural effusion. These findings are new compared to the previous chest x-ray. Mild subcarinal adenopathy. Individualized dose optimization techniques were used for this CT. at 0134 Reported and signed by: Dragan Lal MD Electronically Signed: Dragan Lal, at 1:33 EST Tel , Service support , Chest X-Ray 07/25/18 05:45 IMPRESSION: Bibasilar airspace disease; right greater than left with probable effusion and consolidation. Electronically Signed: Andi Chris DO at 8:22 EST Tel , Service support , Assessment/Plan All Active Problems Severe sepsis (Acute) Community acquired pneumonia (Acute) RECOMMENDATIONS: 1. Broaden antibiotics to vancomycin and Zosyn. 2. Check MRSA screen. 3. Wean supplemental oxygen as tolerated. 4. Given that radiology feels that the patient has a complicated right pleural space, consider transfer to a tertiary care facility. IMPRESSIONS: 1. Acute hypoxemic respiratory failure Secondary to multifocal pneumonia with possible associated pleural effusion. The patient's antibiotics will be broadened to vancomycin and Zosyn, pending finalized infectious workup. We will plan to wean supplemental oxygen to maintain saturations at or above 90%. The opacification in the patient's right hemithorax does appear to have progressed. He was taken for an ultrasound-guided thoracentesis this morning. Radiology reported that the patient's right-sided hemithorax appeared to have a complicated pleural space, which was not amenable to thoracentesis. Therefore, given the patient's tenuous respiratory status, it may be fernandez to consider transfer to a tertiary care facility that has thoracic surgery availability. 2. Severe sepsis secondary to community-acquired pneumonia The patient does appear to be growing staph aureus from his sputum culture. He is currently on broad-spectrum antibiotics, which will be continued. Recommend continuing gentle IV fluid hydration to offset insensible losses. This note was generated with [employer] dictation software. It may contain incorrect words, spelling, and punctuation that were not noted in checking the note before signing. Code Visit Inpatient E&M: 47853 Init Hosp L3
--- NOTE | 2018-07-26 06:47 | RAD_ITS ---
STUDY: X-RAY CHEST REASON FOR EXAM: Male, 38 years old. Shortness of breath TECHNIQUE: AP COMPARISON: 07/25/2018 FINDINGS: EKG leads project over the chest. Right hemidiaphragm remains elevated. Patchy parenchymal opacities of the right more than left lung similar since previous day. Similar similar right pleural effusion (better seen on lateral view of the prior study). There is borderline cardiomegaly. Normal mediastinum and jose. Normal visualized pulmonary arteries. Normal visualized aortic arch and descending thoracic aorta. No acute bony process. There is no demonstrated abnormality of the visualized soft tissue structures of the upper abdomen. RAD/Chest 1 View (Portable) IMPRESSION: 1. Stable exam. Stable right more than left airspace disease with similar right pleural effusion. Electronically Signed: Min Henry MD at 8:57 EST , Service support ,
[2018-07-26 07:12] LABS: Absolute Lymphocyte Count 1.62 X10^3/ul (0.83-4.51); Absolute Neutrophil Count 10.9 X10^3/uL (2.0-7.7); Basophil# 0.04 X10^3/uL; Basophil% 0.3 % (0-1); Hematocrit 36.2 % (40-54); Hemoglobin 11.7 g/dl (13.0-16.5); Lymphocyte # 1.62 X10^3/ul (4.0); Lymphocyte % 12.3 % (19-41); Mean Corp Hgb Conc 32.3 g/gl (32-36); Mean Corpuscular Hgb 28.5 pg (27.0-32.0); Mean Corpuscular Volume 88.1 fL (80-94); Mean Platelet Vol. 10.1 fl (6.2-12.0); Monocyte# 0.43 X10^3/uL; Monocyte% 3.3 % (0-10); Neutrophil # 10.91 X10^3/uL (2.7-7.7); Neutrophil % 82.8 % (47-70); Platelet Count 253 K/mm3 (150-450); RBC Distribution Width CV 12.5 % (11.6-14.6); RBC Distribution Width SD 40.7 fl (35.1-43.9); Red Blood Count 4.11 M/mm3 (4.6-6.2); White Blood Count 13.2 K/mm3 (4.4-11.0)
[2018-07-26 07:18] LABS: POSITIVE COUNT NO; POSITIVE DIFFERENTIAL NO; POSITIVE MORPHOLOGY NO
[2018-07-26 07:30] LABS: ALB/GLOB Ratio 0.6 RATIO (0.9-2.4); Globulin 4.3 g/dL (2.2-4.2); LDH 175 U/L (87-241); Protein, Total 6.7 g/dL (6.4-8.2)
[2018-07-26 07:39] LABS: EST Glomerular Filtration Rate 134 mL/min (>60); Est Glom Filt Rate - Afr Amer 163 mL/min (>60); Estimated Creatinine Clearance 171.01 ml/min
[2018-07-26 07:51] LABS: International Normalized Ratio 1.2; Prothrombin Time (Protime)PT. 14.6 SECONDS (11.7-14.9)
[2018-07-26] MEDS: 0.9% Normal Saline 1,000 ML 100 ML IV (08:13)
--- NOTE | 2018-07-26 08:44 | PCM.RX.CS ---
Consult Pharmacy has been consulted to manage selected antiobiotic: Vancomycin Type of Consult: New start Suspected Infection: Sepsis, Pneumonia Labs: Sodium 134 mmol/L (136-145) L 07/24/18 05:12 Potassium 3.9 mmol/L (3.5-5.1) 07/24/18 05:12 Chloride 97 mmol/L (98-107) L 07/24/18 05:12 Carbon Dioxide 28.0 mmol/L (21.0-32.0) 07/24/18 05:12 Anion Gap 9 (5-15) 07/24/18 05:12 BUN 12 mg/dL (7-18) 07/24/18 05:12 Creatinine 0.70 mg/dL (0.70-1.30) 07/26/18 07:04 Est GFR (MDRD) Af Amer 163 mL/min (>60) 07/26/18 07:04 Est GFR (MDRD) Non-Af 134 mL/min (>60) 07/26/18 07:04 BUN/Creatinine Ratio 12.3 RATIO (10-20) 07/24/18 05:12 Glucose 250 mg/dL (74-106) H 07/24/18 05:12 Microbiology: Microbiology 07/24/18 03:15 Sputum, Expectorated/Coughed Gram Stain - Final 07/24/18 03:15 Sputum, Expectorated/Coughed Respiratory Culture - Preliminary Staphylococcus aureus 07/24/18 05:15 Mucosa - Nose Respiratory Panel (PCR) - Final 07/24/18 05:45 Urine, Clean Catch Legionella Antigen - Final 07/24/18 05:45 Urine, Clean Catch Streptococcus pneumoniae Antigen (M - Final Weight used for dosin kg Estimated Creatinine Clearance: 171 ML/MIN Goal Trough: 15-20 mcg/mL Pharmacy Plan for Drug Dosing: Give initial dose of 2000mg IV x1, then continue with 1500mg IV q8h. Obtain a trough level before the 4th dose. Pharmacy Service will continue to monitor and adjust dosing as required. Follow-Up Labs: Trough Vancomycin Labs to be done on [date and time ordered]: 07/27/18 09:30
--- NOTE | 2018-07-26 10:20 | RAD_ITS ---
STUDY: X-RAY CHEST REASON FOR EXAM: Male, 38 years old. Status post right thoracentesis. TECHNIQUE: AP inspiration and expiration views. COMPARISON: Comparison is made with prior study done earlier in the day. FINDINGS: EKG electrodes are seen. There is elevation of the right hemidiaphragm with blunting of the right costophrenic angle and the bibasilar infiltrates worse on the right side. There is no evidence of pneumothorax. No evidence of pneumothorax on the post right thoracentesis examination. RAD/Chest Insp/Exp 2 View IMPRESSION: No evidence of pneumothorax. Electronically Signed: Balbir Portillo, at 10:46 EST , Service support ,
[2018-07-26 10:33] LABS: M R Staph aureus DNA By PCR Negative (Negative); Probe Check PASS; Specimen Processing Control PASS
[2018-07-26 10:46] LABS: Cytology, Body Fluid / CSF SEE PATHOLOGY REPORT
[2018-07-26] MEDS: guaiFENesin 1,200 MG Tablet 1200 MG PO (11:11)
[2018-07-26 11:19] LABS: Glucose, Body Fluid 252 mg/dL (40-70); LDH,Body Fluid 776 Units/l (Not Establ.); Protein, Body Fluid 3.6 g/dL (Not Establ.)
[2018-07-26 11:26] LABS: Bedside Glucose 275 mg/dL (70-110)
--- NOTE | 2018-07-26 13:29 | CASEMGMT ---
According to the [place] website, the following are in-network tertiary facilities: [facility], [place], [facility], [facility], [facility], [facility], and . Savita MORENO CM
[2018-07-26] MEDS: oxyCODONE 5 MG Tablet PO ×2 (13:41→17:57)
--- NOTE | 2018-07-26 14:35 | US_ITS ---
PROCEDURE: ULTRASOUND GUIDED THORACENTESIS. DATE: July 26, 2018. INDICATION: Male, 38 years old. Left pleural effusion. PHYSICIAN: Balbir Portillo M.D. PROCEDURE: The risks, benefits, and alternatives to the procedure were explained to the patient. The specific risks of bleeding, infection, and pneumothorax requiring chest tube insertion were discussed and accepted. Written informed consent was obtained. Ultrasonographic evaluation of the left lower pleural space was carried out. An adequate pocket was identified. The patient was placed in the sitting, upright position. The overlying skin was prepped and draped in sterile fashion. 1% lidocaine was administered subcutaneously for local anesthesia. Under ultrasound guidance, a 5 Dominican thoracentesis needle/catheter system was advanced into the left posterior lower pleural fluid collection. Approximately 2 mL of blood tinged fluid was drained. The catheter was removed, and a sterile dressing was applied. A specimen was collected and sent to the laboratory for analysis, as requested by the referring clinician. The patient tolerated the procedure well. A chest x-ray was ordered. US/Thoracentesis W US IMPRESSION: Ultrasound-guided left thoracentesis. Electronically Signed: Balbir Portillo, at 10:45 EST , Service support ,
--- NOTE | 2018-07-26 16:57 | NURSING ---
report called to [facility] georges Weiss
--- NOTE | 2018-07-26 16:57 | NURSING ---
[facility] [id number] room [id number]
[2018-07-26 18:15] LABS: Bedside Glucose 268 mg/dL (70-110)
--- NOTE | 2018-07-28 09:16 | PCM.DC.SUM ---
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 He was seen previously in the emergency room 2 days prior and diagnosed with pneumonia and started on oral Levaquin. Patient stated that the symptoms worsened since that time. Workup in the emergency room included a CTA which showed no evidence of pulmonary emboli, labs showed a leukocytosis and elevated blood sugar. His lactic acid was also elevated. CTA showed a multilobular pneumonia on the right. Patient was admitted to a [facility] floor and initially, he was kept on IV Levaquin, but he has medical condition worsened and he became hypoxic and was felt to be in hypoxic respiratory failure, he was transferred to PCU and seen in consultation by pulmonary medicine, ultrasound guided thoracentesis was attempted but patient could not undergo a right-sided thoracentesis due to the density of the fluid. Patient's sputum culture grew out methicillin sensitive staph aureus, it was felt that the patient probably had an empyema and he was transferred to tertiary hospital for further care. On 07/26/18, patient was seen and examined: On examination he appeared unwell. Vital signs as documented. Skin warm and dry and without overt rashes. Neck without JVD. Lungs-decreased lung sounds were noted over the right lower lung field. Heart exam notable for regular rhythm, normal sounds and absence of murmurs, rubs or gallops. Abdomen unremarkable and without evidence of organomegaly, masses, or abdominal aortic enlargement. Extremities nonedematous. Neuro: Cranial nerves II through XII are grossly intact, no focal motor deficits were noted, sensation to light touch and pinprick intact. Psych: Patient is alert and oriented x3, he does not appear anxious or depressed On 07/26/18, patient was seen and examined felt to be in stable condition for transfer to a tertiary facility-patient was transferred to [facility]. - Physical Exam Vital Signs Temp Pulse Resp BP Pulse Ox 100 F H 101 H 24 H 139/82 H 97 07/26/18 17:50 07/26/18 17:50 07/26/18 17:50 07/26/18 17:50 07/26/18 17:50 Oxygen Flow Rate (L/min) [3] 6 Oxygen Flow Rate (L/min) [2] 6 Oxygen Flow Rate (L/min) [1 ( 6 Initial Baseline)] Oxygen Flow Rate (L/min) 5 Oxygen Delivery Method [3] Nasal Cannula Oxygen Delivery Method [2] Nasal Cannula Oxygen Delivery Method [1 ( Nasal Cannula Initial Baseline)] Oxygen Delivery Method Venturi Mask Weight: 115.3 kg Body Mass Index (BMI) 31.7 Intake and Output for Last 24 Hours 07/26/18 07/27/18 07/28/18 23:59 23:59 23:59 Intake Total 3705 / 3705 Output Total 3025 / 3025 Balance 680 / 680 Microbiology Past 72 Hours 07/26/18 10:20 Gram Stain - Final Fluid - Thoracentesis Fluid Body Fluid Culture - Preliminary No growth-Final to follow Anaerobic Culture - Preliminary No growth in 48 hours. 07/26/18 08:45 Gram Stain - Final Sputum, Expectorated/Coughed Respiratory Culture - Final Staphylococcus aureus 07/24/18 02:10 Blood Culture - Preliminary Blood Culture (Wb) - Right Forearm No growth in 48 hours. 07/24/18 02:03 Blood Culture - Preliminary Blood Culture (Wb) - Line Draw No growth in 48 hours. 07/24/18 03:15 Gram Stain - Final Sputum, Expectorated/Coughed Respiratory Culture - Final Staphylococcus aureus Laboratory Tests Past 24 Hrs 07/26/18 10:20 Miscellaneous Cytology SEE PATHOLOGY REPORT Home Medications: Medications to take at Discharge Levofloxacin [Levaquin] 750 mg PO DAILY #7 tab 07/22/18 Primary Care Physician: Care Physician,No Primary [Primary Care Provider] - Disposition: Acute care Hospital Minutes spent on discharge:: 32 Patient Condition:: Stable Medical Necessity - Tobacco Use Smoking Status: Former smoker Meaningful Use Info Meaningful Use Diagnoses (Choose all that apply): None applicable Code Visit Inpatient E&M: 64559 Disch Hosp
--- NOTE | 2018-07-28 09:20 | DS.PCM_ITS ---
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 He was seen previously in the emergency room 2 days prior and diagnosed with pneumonia and started on oral Levaquin. Patient stated that the symptoms worsened since that time. Workup in the emergency room included a CTA which showed no evidence of pulmonary emboli, labs showed a leukocytosis and elevated blood sugar. His lactic acid was also elevated. CTA showed a multilobular pneumonia on the right. Patient was admitted to a [facility] floor and initially, he was kept on IV Levaquin, but he has medical condition worsened and he became hypoxic and was felt to be in hypoxic respiratory failure, he was transferred to PCU and seen in consultation by pulmonary medicine, ultrasound guided thoracentesis was attempted but patient could not undergo a right-sided thoracentesis due to the density of the fluid. Patient's sputum culture grew out methicillin sensitive staph aureus, it was felt that the patient probably had an empyema and he was tr ansferred to tertiary hospital for further care. On 07/26/18, patient was seen and examined: On examination he appeared unwell. Vital signs as documented. Skin warm and dry and without overt rashes. Neck without JVD. Lungs-decreased lung sounds were noted over the right lower lung field. Heart exam notable for regular rhythm, normal sounds and absence of murmurs, rubs or gallops. Abdomen unremarkable and without evidence of organomegaly, masses, or abdominal aortic enlargement. Extremities nonedematous. Neuro: Cranial nerves II through XII are grossly intact, no focal motor deficits were noted, sensation to light touch and pinprick intact. Psych: Patient is alert and oriented x3, he does not appear anxious or depressed On 07/26/18, patient was seen and examined felt to be in stable condition for transfer to a tertiary facility-patient was transferred to [facility]. - Physical Exam Vital Signs Temp Pulse Resp BP Pulse Ox 100 F H 101 H 24 H 139/82 H 97 07/26/18 17:50 07/26/18 17:50 07/26/18 17:50 07/26/18 17:50 07/26/18 17:50 Oxygen Flow Rate (L/min) [3] 6 Oxygen Flow Rate (L/min) [2] 6 Oxygen Flow Rate (L/min) [1 ( 6 Initial Baseline)] Oxygen Flow Rate (L/min) 5 Oxygen Delivery Method [3] Nasal Cannula Oxygen Delivery Method [2] Nasal Cannula Oxygen Delivery Method [1 ( Nasal Cannula Initial Baseline)] Oxygen Delivery Method Venturi Mask Weight: 115.3 kg Body Mass Index (BMI) 31.7 Intake and Output for Last 24 Hours 07/26/18 07/27/18 07/28/18 23:59 23:59 23:59 Intake Total 3705 / 3705 Output Total 3025 / 3025 Balance 680 / 680 Microbiology Past 72 Hours 07/26/18 10:20 Gram Stain - Final Fluid - Thoracentesis Fluid Body Fluid Culture - Preliminary No growth-Final to follow Anaerobic Culture - Preliminary No growth in 48 hours. 07/26/18 08:45 Gram Stain - Final Sputum, Expectorated/Coughed Respiratory Culture - Final Staphylococcus aureus 07/24/18 02:10 Blood Culture - Preliminary Blood Culture (Wb) - Right Forearm No growth in 48 hours. 07/24/18 02:03 Blood Culture - Preliminary Blood Culture (Wb) - Line Draw No growth in 48 hours. 07/24/18 03:15 Gram Stain - Final Sputum, Expectorated/Coughed Respiratory Culture - Final Staphylococcus aureus Laboratory Tests Past 24 Hrs 07/26/18 10:20 Miscellaneous Cytology SEE PATHOLOGY REPORT Home Medications: Medications to take at Discharge Levofloxacin [Levaquin] 750 mg PO DAILY #7 tab 07/22/18 Primary Care Physician: Care Physician,No Primary [Primary Care Provider] - Disposition: Acute care Hospital Minutes spent on discharge:: 32 Patient Condition:: Stable Medical Necessity - Tobacco Use Smoking Status: Former smoker Meaningful Use Info Meaningful Use Diagnoses (Choose all that apply): None applicable Code Visit Inpatient E&M: 35998 Disch Hosp
== END 2018-07-26 18:48 | disposition short-term general hospital (02) | DRG 871 ==
LOC: ED 07-24 00:46 → MS3 07-24 02:16 → PCU 07-26 17:13
PROVIDERS: Internal Medicine Critical Care Medicine; Admitting Provider Hospitalist; Emergency Provider Emergency Medicine; Referring Provider Hospitalist; Visit Provider Internal Medicine
DX: A41.9 Sepsis, unspecified organism (principal); J15.211 Pneumonia due to Methicillin susceptible Staphylococcus aureus; J86.9 Pyothorax without fistula; J96.01 Acute respiratory failure with hypoxia; J91.8 Pleural effusion in other conditions classified elsewhere; R65.20 Severe sepsis without septic shock; E11.9 Type 2 diabetes mellitus without complications; Z23 Encounter for immunization
CPT/HCPCS: 32555; 36415; 71045; 71046; 71275; 80048; 80053; 81002; 82565; 82945; 82962; 83036; 83605; 83615; 84156; 84157; 84484; 85025; 85610; 85730; 87040; 87070; 87075; 87077; 87186; 87205; 87449; 87633; 87641; 88108; 88305; 88313; 93005; 94640; 94667; 94668; 97803; 99283; J7030; J7040; Q9967; 90686; A4216; J2405

== ENCOUNTER → 2019-12-25 09:55 | Outpatient (CLI) | payer BC, SELFPAY ==
[2018-07-24 03:05] VITALS: BMI 31.7
--- NOTE | 2019-12-25 14:45 | STRESSREP ---
Stress Test Report Exercise stress test. 39-year-old with a history of chest pain. Stress protocol: Resting EKG demonstrates normal sinus rhythm with a rate of 61 bpm normal intervals are noted resting blood pressure 124/78. The patient exercised according to regular Brendon protocol for total duration of 9 minutes. Patient completed stage III of the Brendon protocol. The maximum heart rate attained was 155 bpm which was 85% of maximum predicted heart rate the maximum workload was 10.4 metabolic equivalents. At rest there were no ST or T wave changes noted to suggest ischemia at peak exercise upsloping ST changes only were noted with no meet the criteria for ischemia. No clinical angina was noted the test was terminated due to dyspnea. The resting blood pressure was 124/78 with a peak blood pressure 140/66. There was normal blood pressure response to exercise noted. No arrhythmias were present. Conclusion: Normal exercise stress test with no EKG criteria for ischemia at a high workload. No arrhythmias noted. Good functional aerobic capacity.
== END ==
LOC: CVS 09:56
PROVIDERS: PCP Family Medicine; Referring Provider Nurse Practitioner Primary Care; Visit Provider Nurse Practitioner Primary Care
DX: R06.02 Shortness of breath (principal); R00.2 Palpitations
CPT/HCPCS: 93017

== ENCOUNTER 2022-01-06 07:47 | Emergency (ER) | payer BC, SELFPAY ==
[2022-01-06 07:50] VITALS: BP 131/92; PULSE 127; RESP 19; TEMP 36.7; O2SAT 97; BMI 32.3
--- NOTE | 2022-01-06 08:03 | ED.VIS.DYS ---
HPI History of Present Illness Chief Complaint: Shortness of Breath Informant: patient Onset/Context/Timing Onset: Yesterday Context: gradual Timing: Continuous Quality: Positive for - (Tightness) Worsened by: Nothing Relieved by: Nothing Associated Symptoms cough and ear pain; Negative for rhinorrhea, post nasal drip, fever, sore throat, chills, sweats, clear sputum, white sputum, yellow sputum or green sputum Chest Pain: Positive for None Narrative Narrative: Patient presents with shortness of breath that has gradually gotten worse since last evening. Patient states it is constant. Patient states nothing makes it better nothing makes it worse. Patient states it feels similar to prior episode of pneumonia. Patient describes it as a tightness. Patient states it feels like it was more in his back. Patient admits to a mild cough but denies any sputum production. Patient does admit to some sinus pressure and bilateral ear pain. Patient denies any fevers or chills. Patient denies any chest pain. PE Risk Factors: Negative for Cancer, OCP + Smoking + > 35, Prior DVT or PE, Recent immobilization, Recent surgery or Recent travel [facility] Medical History (Updated 01/06/22 @ 10:[address] Morgan Villalta, ) Diabetes Hypertension Home Medications levofloxacin 750 mg tablet 750 mg PO DAILY #7 tabs 07/22/18 [Rx Last Taken 07/23/18 22:30] Allergy/AdvReac Type Severity Reaction Status Date / Time No Known Allergies Allergy Verified 01/06/22 07:48 Surgical History Hx of arthroscopic knee surgery Social History Smoking Status: Former smoker ROS ROS ED Constitutional Constitutional ED: Denies chills or fever(s) Eyes Eyes: Denies blurry vision or change in vision ENT ENT ED: Reports ear pain bilateral; Denies rhinorrhea or sore throat Cardiovascular Cardiovascular: Denies chest pain or palpitations Respiratory/Chest Respiratory/Chest: Reports cough and dyspnea Gastrointestinal Gastrointestinal: Reports nausea; Denies vomiting Genitourinary Genitourinary ED: Denies dysuria or hematuria Musculoskeletal Musculoskeletal: Reports back pain; Denies neck pain Integumentary Denies abscess or rash Neurologic Neurologic: Denies headache(s) or weakness Allergic/Immunologic Allergic/Immunologic ED: Denies mouth swelling or urticaria EXAM Physical Exam Const Vital Signs: 01/06/22 07:50 01/06/22 08:23 01/06/22 08:28 Temperature 98.0 F Temperature Source Temporal Pulse Rate 127 H 114 H Respiratory Rate 19 H 18 Respiratory Effort Normal Respiratory Depth Normal Respiratory Pattern Normal Normal Blood Pressure 131/92 H Blood Pressure Mean 105 Pulse Ox 97 Oxygen Delivery Method Room Air Room Air 01/06/22 08:52 01/06/22 09:00 01/06/22 10:33 Temperature 100.2 F H 100.3 F H Temperature Source Oral Oral Pulse Rate 119 H 109 H 99 Respiratory Rate 18 18 Respiratory Effort Respiratory Depth Respiratory Pattern Blood Pressure 134/83 H 137/88 H 120/83 H Blood Pressure Mean 100 104 Pulse Ox 96 96 96 Oxygen Delivery Method Room Air Room Air Positive well nourished and well developed General Appearance ED: well developed HEENT Reports moist mucous membranes Neck supple and no JVD Resp normal respiratory effort and clear to auscultation bilaterally Cardio regular rhythm and no murmurs Rate: tachycardic GI normal to inspection, nondistended, normoactive bowel sounds and non-tender Palpation: soft Extremity normal to inspection General Extremety ED: Negative for edema or tenderness General Extremity: Negative for edema Neuro oriented x3, CN's II-XII intact bilaterally and no sensory deficits noted Sensorium / Orientation: alert Motor Exam: strength 5/5 throughout Psych mental status grossly normal Skin no rashes or lesions noted MDM MDM MDM Narrative Medical decision making narrative: PA and lateral chest x-ray was obtained. There are 2 views. On my interpretation, lung molina show a right pleural effusion. This is improved from previous. There is normal cardiac silhouette. Bony thorax is normal. There is no acute process noted. Radiologist also interpreted the x-ray and agrees. Patient was given a DuoNeb aerosol here. CBC was within normal limits. Comprehensive metabolic profile showed a potassium of 3.0 but was otherwise within normal limits. Patient was given a dose of potassium here. COVID-19 rapid antigen was obtained and was positive. Influenza A and influenza B swabs were obtained and were negative. Patient was advised of his findings. Patient was instructed to take Tylenol as needed for fevers and aches. Patient was instructed to drink plenty of fluids. Patient was instructed to follow-up with his primary care physician in 5 to 7 days. Patient understood and was agreeable with the plan. All questions were answered. Lab Data Attestation: I reviewed the patient's lab results. Labs: Laboratory Results - last 24 hr 01/06/22 01/06/22 01/06/22 08:50 08:50 10:13 WBC 6.3 RBC 4.71 Hgb 14.0 Hct 40.0 MCV 84.9 MCH 29.7 MCHC 35.0 RDW Std Deviation 38.0 RDW Coeff of Dustin 12.3 Plt Count 159 MPV 11.1 Immature Gran % (Auto) 0.300 Neut % (Auto) 80.1 H Lymph % (Auto) 10.0 L [place] % (Auto) 9.1 Eos % (Auto) 0.2 Baso % (Auto) 0.3 Absolute Neuts (auto) 5.0 Absolute Lymphs (auto) 0.63 L Nucleated RBC % 0 D-Dimer Quant (PE/DVT) < 0.27 L Sodium 137 Potassium 3.0 L Chloride 102 Carbon Dioxide 26.0 Anion Gap 9 BUN 17 Creatinine 0.89 Estim Creat Clear Calc 130.55 Est GFR (MDRD) Af Amer 121 Est GFR (MDRD) Non-Af 100 BUN/Creatinine Ratio 19.1 Glucose 143 H Calcium 8.9 Total Bilirubin 0.50 AST 15 ALT 35 Alkaline Phosphatase 63 Total Protein 7.4 Albumin 4.1 Globulin 3.3 Albumin/Globulin Ratio 1.2 Radiography Chest X-Ray - ED: 2 View, Read by ED Physician, Read by Radiologist, No Acute Disease and Right Effusion Diagnostic Testing: Clinical Impression(s) from Imaging Studies Chest X-Ray 01/06/22 08:07 IMPRESSION: Right pleural effusion demonstrates decrease in comparison to the prior study. Electronically Signed: Rakesh Lizama MD at 9:26 EDT , Discharge Plan Triage Chief Complaint: Shortness of Breath ED Provider: Morgan Villalta Dx/Rx/DC Orders Clinical Impression: COVID-19, Diabetes mellitus Instructions: Coronavirus Disease 2019 (COVID-19): Caring for Yourself or Others Prescriptions: No Action levofloxacin 750 MG tablet 750 mg PO DAILY Qty: 7 0RF Rx Instructions: infection Primary Care Provider: Roger Helms Referrals: Roger Helms MD [Primary Care Provider] - 5-7 Days Disposition Disposition: Home, Self Care Discharge Date/Time: 01/06/22 10:45
--- NOTE | 2022-01-06 08:07 | RAD_ITS ---
INDICATION: Cough EXAMINATION/TECHNIQUE: X-RAY - XR Chest 2 Views COMPARISON: 07/26/2018. FINDINGS: LINES/DEVICES: None. LUNGS: Opacification visualized in the right lower lung field with obscuration of the right hemidiaphragm right costophrenic angle, this demonstrates slight decrease in comparison to the prior study. The left costophrenic angle is unremarkable, no evidence of left pleural effusion is seen. No evidence of pneumothorax or parenchymal lung mass. MEDIASTINUM AND CARDIOVASCULAR STRUCTURES: Cardiac silhouette not enlarged. BONES AND SOFT TISSUES: Unremarkable. RAD/Chest PA and Lateral IMPRESSION: Right pleural effusion demonstrates decrease in comparison to the prior study. Electronically Signed: Rakesh Lizama MD at 9:26 EDT ,
[2022-01-06] MEDS: Ipratropium/Albuterol Sulfate 3 ML AMPUL.NEB INHALATION (08:18)
[2022-01-06 08:23] VITALS: PULSE 114; RESP 18
[2022-01-06 08:28] VITALS: O2SAT 94
[2022-01-06 08:52] VITALS: BP 134/83; PULSE 119; RESP 18; TEMP 37.9; O2SAT 96
[2022-01-06 09:00] VITALS: BP 137/88; PULSE 109; RESP 18; TEMP 37.9; O2SAT 96
[2022-01-06 09:02] LABS: Absolute Lymphocyte Count 0.63 X10^3/uL (0.83-4.51); Basophil# 0.02 X10^3/uL; Basophil% 0.3 % (0-1); Eosinophil# 0.01 X10^3/uL; Eosinophils% 0.2 % (0-5); Lymphocyte # 0.63 X10^3/ul (0.83-4.51); Mean Corpuscular Hgb 29.7 pg (27.0-32.0); Mean Corpuscular Volume 84.9 fL (80-94); Mean Platelet Vol. 11.1 fl (6.2-12.0); Monocyte# 0.57 X10^3/uL; Monocyte% 9.1 % (0-10); NRBC Flagged by Analyzer 0 % (0-5); Neutrophil # 5.02 X10^3/uL (2.7-7.7); Neutrophil % 80.1 % (47-70); Platelet Count 159 K/mm3 (150-450); RBC Distribution Width CV 12.3 % (11.6-14.6); Red Blood Count 4.71 M/mm3 (4.6-6.2); White Blood Count 6.3 K/mm3 (4.4-11.0)
[2022-01-06 09:18] LABS: ALB/GLOB Ratio 1.2 RATIO (0.9-2.4); AST(SGOT) 15 U/L (15-37); Alanine Aminotransfer ALT/SGPT 35 U/L (16-61); Albumin, Serum 4.1 g/dL (3.2-5.0); Alkaline Phosphatase 63 U/L (45-117); Anion Gap 9 (5-15); BUN 17 mg/dL (7-18); BUN/Creat Ratio 19.1 RATIO (10-20); Calcium,Total 8.9 mg/dL (8.5-10.1); Chloride 102 mmol/L (98-107); Creatinine, Serum 0.89 mg/dL (0.70-1.30); EST Glomerular Filtration Rate 100 mL/min (>60); Est Glom Filt Rate - Afr Amer 121 mL/min (>60); Estimated Creatinine Clearance 130.55 ml/min; Globulin 3.3 g/dL (2.2-4.2); Glucose 143 mg/dL (74-106); Protein, Total 7.4 g/dL (6.4-8.2); Sodium Level 137 mmol/L (136-145)
[2022-01-06 10:33] VITALS: BP 120/83; PULSE 99; O2SAT 96
[2022-01-06] MEDS: Potassium Chloride Oral Tablet 20 MEQ 40 MEQ PO (10:34)
[2022-01-06 10:35] LABS: D-Dimer Quantitative (DVT/PE) < 0.27 FEU/ug/m (0.27-0.49)
== END 2022-01-06 10:45 | disposition home or self-care (01) ==
PROVIDERS: Emergency Provider Emergency Medicine; PCP Family Medicine; Visit Provider Emergency Medicine
DX: U07.1 COVID-19 (principal); E11.9 Type 2 diabetes mellitus without complications; Z87.891 Personal history of nicotine dependence
CPT/HCPCS: 71046; 80053; 85025; 85379; 87428; 94640; 99285; A4216